=== PATIENT | female | born 1990 | race Caucasian/White ===

== ENCOUNTER 2020-10-02 12:30 | Outpatient (RCR) | payer BC, SELFPAY | END 2020-10-02 23:59 | LOC: IMMUN 12:30 | PROVIDERS: PCP Nurse Practitioner Family; Visit Provider Family Medicine | DX: Z23 Encounter for immunization (principal) | CPT/HCPCS: 0011A; 0012A; 91301 ==

== ENCOUNTER 2022-02-23 16:42 | Emergency (ER) | payer OTHER, BC, SELFPAY ==
[2022-02-23 16:43] VITALS: BP 131/86; PULSE 83; RESP 4; TEMP 36.1; O2SAT 97; BMI 40.6
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
[2022-02-23] MEDS: Amox/Clavulanate 875 MG Tablet PO (17:03)
[2022-02-23] MEDS: Diphth,Pertuss(Acell),Tet Vac 0.5 ML Vial IM (17:03)
== END 2022-02-23 17:10 | disposition home or self-care (01) ==
LOC: ED 17:06
PROVIDERS: Emergency Provider Student in an Organized Health Care Education/Training Program; PCP Nurse Practitioner Family; Visit Provider Student in an Organized Health Care Education/Training Program
DX: S40.272A Other superficial bite of left shoulder, initial encounter (principal); S20.211A Contusion of right front wall of thorax, initial encounter; W50.3XXA Accidental bite by another person, initial encounter; W50.1XXA Accidental kick by another person, initial encounter; Y92.199 Unspecified place in other specified residential institution as the place of occurrence of the external cause; Y99.0 Civilian activity done for income or pay
CPT/HCPCS: 90471; 90715; 99281; 99283

== ENCOUNTER 2023-09-14 08:57 | Emergency (ER) | payer OTHER, BC, SELFPAY ==
[2023-09-14 08:58] VITALS: BP 111/82; PULSE 98; RESP 16; TEMP 36.4; O2SAT 99; BMI 45.6
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
== END 2023-09-14 09:25 | disposition home or self-care (01) ==
LOC: ED 09:20
PROVIDERS: Emergency Provider Emergency Medicine; PCP Family Medicine; Visit Provider Emergency Medicine
DX: S60.571A Other superficial bite of hand of right hand, initial encounter (principal); S60.572A Other superficial bite of hand of left hand, initial encounter; Y04.1XXA Assault by human bite, initial encounter; Y93.89 Activity, other specified; Y99.8 Other external cause status; Y92.89 Other specified places as the place of occurrence of the external cause; Z20.828 Contact with and (suspected) exposure to other viral communicable diseases
CPT/HCPCS: 99282

== ENCOUNTER → 2023-09-30 | Outpatient (CLI) | payer BC, SELFPAY ==
--- OUTSIDE RECORDS SUMMARY | 2023-09-30 10:14 | XMS RPT_ITS | CCD ---
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 Name Role Phone Jama Padilla MD Primary Care Provider BOBBI BILLS Attending JAMA Mckeon Referring Unavailab JAMA Pearson Primary Care Unavailab JAMA Pearson Referring Unavailab JAMA Pearson Primary Care Unavailab JAMA Pearson Attending Unavailab JAMA Pearson Primary Care Unavailab JAMA Pearson Referring Unavailab JAMA Pearson Primary Care Unavailab JAMA Pearson Attending Unavailab JAMA Pearson Referring Unavailab JAMA Pearson Primary Care Unavailab JAMA Pearson Primary Care Unavailab le Allergies Allergy Classification Reported Allergen(s) Allergy Type Date of Onset Reaction(s) Facility (7 sources) Sulfonamides (Antibiotic); Translations: [SULFA (SULFONAMIDE ANTIBIOTICS)] Propensity to adverse reactions 6 [facility] Medications Current Medications Medication Drug Class(es) Dates Sig (Normalized) Sig (Original) levonorgestrel 0.761788 mg/hr intrauterine system (6 sources) Progestin, Progestin-containi ng Intrauterine Device Start: 12-12-2020 End: 12-11-2025 levonorgestrel (KYLEENA) 17.5 mcg/24 hrs (5 yrs) 19.5 mg IUD 1 Each by INTRAUTERINE route as directed. 1 Each 0 12/12/2020 12/11/2025 Active Completed/Discontinued Medications Medication Drug Class(es) Dates Sig (Normalized) Sig (Original) doxycycline monohydrate 100 mg oral capsule (5 sources) Tetracycline-cla ss Drug Start: 11-12-2020 End: 06-16-2023 take 1 capsule by mouth twice daily at mealtime doxycycline monohydrate (MONODOX) 100 mg capsule TAKE 1 CAPSULE BY MOUTH TWICE DAILY for 1 (ONE) month. Take WITH FOOD 0 11/12/2020 06/16/2023 Discontinued Problems Active Problems Problem Classification Problem Date Documented Date Episodic/Chronic Anxiety disorders (3 sources) Generalized anxiety disorder; Translations: [Generalized anxiety disorder] Onset: 11-25-2022 Chronic Disorders usually diagnosed in infancy, childhood, or adolescence (6 sources) Attention deficit hyperactivity disorder, predominantly inattentive type; Translations: [Other specified behavioral and emotional disorders with onset usually occurring in childhood and adolescence] Onset: 06-21-2006 06-21-2006 Chronic Neoplasms of unspecified nature or uncertain behavior (1 source) Thrombocytosis; Translations: [Thrombocytosis] Onset: 06-16-2023 Chronic Neoplasms of unspecified nature or uncertain behavior (2 sources) Thrombocytosis; Translations: [Thrombocytosis] Episodic Other nutritional; endocrine; and metabolic disorders (8 sources) Body mass index 40+ - severely obese; Translations: [Morbid (severe) obesity due to excess calories] Onset: 11-25-2022 Chronic Other nutritional; endocrine; and metabolic disorders (6 sources) Obese class II; Translations: [Obesity, unspecified] Onset: 09-25-2020 09-25-2020 Chronic Other nutritional; endocrine; and metabolic disorders (1 source) Morbid (severe) obesity due to excess calories; Translations: [Morbid obesity with BMI of 40.0-44.9, adult (HCC)] Onset: 11-25-2022 Chronic Other nutritional; endocrine; and metabolic disorders (1 source) Body mass index (BMI) 40.0-44.9, adult; Translations: [Morbid obesity with BMI of 40.0-44.9, adult (HCC)] Onset: 11-25-2022 Chronic Other screening for suspected conditions (not mental disorders or infectious disease) (4 sources) Cancer cervix screening status; Translations: [Encounter for screening for malignant neoplasm of cervix] Onset: 12-23-2022 Episodic Poisoning by nonmedicinal substances (1 source) Bee sting; Translations: [Toxic effect of venom of bees, accidental (unintentional), initial encounter] 08-13-2023 Episodic Skin and subcutaneous tissue infections (1 source) Inflammatory dermatosis; Translations: [Local infection of the skin and subcutaneous tissue, unspecified] 04-24-2023 Episodic Past or Other Problems Problem Classification Problem Date Documented Da te Episodic/Chronic Cancer of cervix (9 sources) Carcinoma in situ of exocervix; Translations: [Carcinoma in situ of exocervix] Onset: 03-05-2020 Episodic Immunizations and screening for infectious disease (6 sources) Viral screening status; Translations: [Encounter for screening for other viral diseases] Onset: 11-25-2022 Episodic Nonmalignant breast conditions (4 sources) Large breast; Translations: [Hypertrophy of breast] Onset: 11-25-2022 Episodic Other skin disorders (8 sources) Axillary hidradenitis suppurativa; Translations: [Hidradenitis suppurativa] Onset: 09-25-2020 Episodic Other skin disorders (1 source) Hidradenitis suppurativa; Translations: [Hidradenitis axillaris] Onset: 09-25-2020 Episodic Results Test Name Value Interpretation Reference Range Facil ity Vital Signs Date Time Vital Sign Value Performing Clinician Faci lity 06-16-2023 08:58-0400 Body weight 104.42 kg Jama Padilla MD Work Phone: [facility] 06-16-2023 08:58-0400 Diastolic blood pressure 70 mm[Hg] Jama Padilla MD Work Phone: [facility] 06-16-2023 08:58-0400 Heart rate 76 /min Jama Padilla MD Work Phone: [facility] 06-16-2023 08:58-0400 Respiratory rate 16 /min Jama Padilla MD Work Phone: [facility] 06-16-2023 08:58-0400 SaO2% (BldA) [Mass fraction] 99 % Jama Padilla MD Work Phone: [facility] 06-16-2023 08:58-0400 Systolic blood pressure 130 mm[Hg] Jama Padilla MD Work Phone: [facility] 04-24-2023 14:07-0400 Body temperature 98.2 [degF] Taurus Salomón BOATING SAFETY OFFICER.HANDBAG FINISHER Work Phone: [facility] 04-24-2023 14:07-0400 Body weight 105.69 kg Taurus Lorenzana BOATING SAFETY OFFICER.HANDBAG FINISHER Work Phone: [facility] 04-24-2023 14:07-0400 Diastolic blood pressure 81 mm[Hg] Taurus Salomón BOATING SAFETY OFFICER.HANDBAG FINISHER Work Phone: [facility] 04-24-2023 14:07-0400 Heart rate 82 /min Taurus Salomón BOATING SAFETY OFFICER.HANDBAG FINISHER Work Phone: [facility] 04-24-2023 14:07-0400 Respiratory rate 18 /min Taurus King BOATING SAFETY OFFICER.HANDBAG FINISHER Work Phone: [facility] 04-24-2023 14:07-0400 SaO2% (BldA) [Mass fraction] 99 % Taurus Salomón BOATING SAFETY OFFICER.HANDBAG FINISHER Work Phone: [facility] 04-24-2023 14:07-0400 Systolic blood pressure 118 mm[Hg] Taurus Salomón BOATING SAFETY OFFICER.HANDBAG FINISHER Work Phone: [facility] 12-23-2022 14:32-0400 Body height 154.9 cm Bobbi Plotts BOATING SAFETY OFFICER.CNM Work Phone: [facility] 12-23-2022 14:32-0400 Body weight 99.79 kg Bobbi Plotts BOATING SAFETY OFFICER.CNM Work Phone: [facility] 12-23-2022 14:32-0400 Diastolic blood pressure 64 mm[Hg] Bobbi Plotts BOATING SAFETY OFFICER.CNM Work Phone: [facility] 12-23-2022 14:32-0400 Systolic blood pressure 112 mm[Hg] Bobbi Plotts BOATING SAFETY OFFICER.CNM Work Phone: [facility] 11-25-2022 13:20-0400 Body height 158.6 cm Jama Padilla MD Work Phone: [facility] 11-25-2022 13:20-0400 Body weight 102.24 kg Jama Padilla MD Work Phone: [facility] 11-25-2022 13:20-0400 Diastolic blood pressure 78 mm[Hg] Jama Padilla MD Work Phone: [facility] 11-25-2022 13:20-0400 Heart rate 67 /min Jama Padilla MD Work Phone: [facility] 11-25-2022 13:20-0400 Respiratory rate 16 /min Jama Padilla MD Work Phone: [facility] 11-25-2022 13:20-0400 SaO2% (BldA) [Mass fraction] 98 % Jama Padilla MD Work Phone: [facility] 11-25-2022 13:20-0400 Systolic blood pressure 124 mm[Hg] Jama Padilla MD Work Phone: [facility] Encounters Encounter Date Encounter Type Care Provider Facility Start: 06-17-2023 Telephone encounter Skip Padilla MD Work Phone: [facility] Procedures Date Procedure Procedure Detail Performing Clinician Start: 12-23-2022 Iadna chlamydia trachomatis amplified probe tq Bobbi Bills BOATING SAFETY OFFICER.CNM Work Phone: Plan of Treatment Date Care Activity Detail Author Start: 02-24-2032 Urine microalbumin profile [facility] Start: 12-24-2027 HPV TESTING HPV TESTING [facility] Start: 12-24-2027 PAP TESTING PAP TESTING [facility] Start: 03-05-2025 HPV TESTING HPV TESTING [facility] Start: 03-05-2025 PAP TESTING PAP TESTING [facility] Start: 03-11-2024 Influenza vaccination Influenza Vacc ine (#1) [facility] Immunizations Immunization Date Immunization Notes Care Provider Fa cility 02-23-2022 tetanus toxoid, redu panchito diphtheria toxoid, and acellular pertussis vaccine, adsorbed Jama Padilla MD Work Phone: [facility] Work Phone: 07-11-2020 influenza, injectabl e, quadrivalent, contains preservative Jama Padilla MD Work Phone: [facility] Work Phone: 07-11-2020 influenza virus vaccine, unspecified formulation Jama Padilla MD Work Phone: [facility] 02-13-2020 tetanus toxoid, redu panchito diphtheria toxoid, and acellular pertussis vaccine, adsorbed Jama Padilla MD Work Phone: [facility] Work Phone: 08-12-2015 influenza, seasonal, injectable Jama Padilla MD Work Phone: [facility] 11-30-2012 Meningococcal, MCV4, unspecified conjugate formulation(groups A, C, Y and W-135) Jama Padilla MD Work Phone: [facility] 04-10-2009 measles, mumps and rubella virus vaccine Jama Padilla MD Work Phone: [facility] Work Phone: 04-16-2008 diphtheria, tetanus toxoids and acellular pertussis vaccine, unspecified formulation Jama Padilla MD Work Phone: [facility] Work Phone: 04-16-2008 meningococcal polysaccharide vaccine (MPSV4) Jama Padilla MD Work Phone: [facility] 04-16-2008 tetanus toxoid, redu panchito diphtheria toxoid, and acellular pertussis vaccine, adsorbed Jama Padilla MD Work Phone: [facility] 09-11-2007 human papilloma viru s vaccine, quadrivalent Jama Padilla MD Work Phone: [facility] 05-09-2007 human papilloma viru s vaccine, quadrivalent Jama Padilla MD Work Phone: [facility] Work Phone: 03-14-2007 human papilloma viru s vaccine, quadrivalent Jama Padilla MD Work Phone: [facility] Work Phone: 10-29-1997 diphtheria, tetanus toxoids and acellular pertussis vaccine Jama Padilla MD Work Phone: [facility] 10-29-1997 measles, mumps and rubella virus vaccine Jama Padilla MD Work Phone: [facility] 10-29-1997 poliovirus vaccine, inactivated Jama Padilla MD Work Phone: [facility] Work Phone: 04-01-1994 diphtheria, tetanus toxoids and acellular pertussis vaccine Jama Padilla MD Work Phone: [facility] 04-01-1994 haemophilus influenz ae type b vaccine, HbOC conjugate Jama Padilla MD Work Phone: [facility] 04-01-1994 measles, mumps and rubella virus vaccine Jama Padilla MD Work Phone: [facility] 04-01-1994 poliovirus vaccine, inactivated Jama Padilla MD Work Phone: [facility] 07-02-1993 diphtheria, tetanus toxoids and acellular pertussis vaccine Jama Padilla MD Work Phone: [facility] 07-02-1993 haemophilus influenz ae type b vaccine, HbOC conjugate Jama Padilla MD Work Phone: [facility] 07-02-1993 hepatitis B vaccine, pediatric or pediatric/adolescent dosage Jama Padilla MD Work Phone: [facility] 04-16-1993 diphtheria, tetanus toxoids and acellular pertussis vaccine Jama Padilla MD Work Phone: [facility] 04-16-1993 haemophilus influenz ae type b vaccine, HbOC conjugate Jama Padilla MD Work Phone: [facility] 04-16-1993 poliovirus vaccine, inactivated Jama Padilla MD Work Phone: [facility] 02-12-1993 diphtheria, tetanus toxoids and acellular pertussis vaccine Jama Padilla MD Work Phone: [facility] 02-12-1993 haemophilus influenz ae type b vaccine, HbOC conjugate Jama Padilla MD Work Phone: [facility] 02-12-1993 poliovirus vaccine, inactivated Jama Padilla MD Work Phone: [facility] 02-03-1993 hepatitis B vaccine, pediatric or pediatric/adolescent dosage Jama Padilla MD Work Phone: [facility] 1992 hepatitis B vaccine, pediatric or pediatric/adolescent dosage Jama Padilla MD Work Phone: [facility] Payers Date Payer Category Payer Unknown [employer] PPO [id number] 2020-Present [phone] [id number] [place] [address] PPO [id number] 2020 Unknown [id number] Social History Date Type Detail Facility Start: 11-25-2022 Tobacco smoking stat [facility] Never smoked tobacco [facility] Start: 11-25-2022 Tobacco use and exposure Smokeless tobacco non-user [facility] Start: 11-25-2022 End: 06-16-2023 Alcohol intake Ex-drinker (finding) [facility] Start: 11-25-2022 End: 06-16-2023 Alcohol intake [facility] Work Phone: Start: 1990 Sex Assigned At Female C [facility] Work Phone: Start: 04-24-2023 End: 06-16-2023 Tobacco use panel [facility] Work Phone: Adult Depression Screening Assessment 0 [facility] Work Phone: Start: 09-25-2020 Gender identity Identifies as female gender (finding) [facility] Work Phone: Start: 09-25-2020 Sexual orientation Heterosexual (fin ding) [facility] Work Phone: Clinical Notes 03-30-2010 to 06-17-2023 Telephone Encounter - Heidi Clarke RN - 06/17/2023 8:45 AM EDTBJama woo MD - 06/16/2023 8:55 AM EDTTaurus Lorenzana APRN.HANDBAG FINISHER - 04/24/2023 2:28 PM EDT Note Date & Type Note Facility 06-17-2023 Miscellaneous Notes Images from the original note were not included. Detailed message left on pt's identified VM, of message below. Heidi Clarke RN Result Notes Jama Padilla MD 06/17/2023 8:05 AM EDT Labs unremarkable. No changes to regimen. documented in this encounter [facility] 06-16-2023 Note HNO ID: [id number] Author: Jama Padilla MD Service: ? Author Type: Physician Type: Progress Notes Filed: 06/16/2023 9:37 AM Note Text: Chief Complaint Patient presents with: Follow Up: 6 month HPI Bobbi Lipscomb is a 32 year old female who presents here today for Above Complaints.. Zoloft increased from 50 to 75 mg at last OV for uncontrolled anxiety symptoms. Working well on higher dosage. Not seeing counseling and is refusing referral today. Denies panic symptoms, SI/HI. Patient following up with dermatology about every 6-12 months for her hidradenitis. Stopped her doxycycline and aldactone 3 months ago due to diarrhea and increased appetite. Has not seen dermatology recently or notified them that she stopped the rx. Pap smear, HPV, and GC/chlamydia screening on 12/23 all normal. Going to the gym 4 days per week to help with weight loss. Thinks she has lost weight and gained some muscle. Clothes fitting looser and friends have commented about weight loss. Not eating the best . Past medical history, appointments, medications, allergies reviewed. Previous Medical History PAST MEDICAL HISTORY Diagnosis Date Abnormal glandular Papanicolaou smear of cervix 11/2017 Abn. 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 Mcmanus Macromastia Morbid obesity with BMI of 40.0-44.9, adult (HCC) Previous Surgical History PAST SURGICAL HISTORY Procedure Laterality Date COLPOSCOPY CERVIX UPPER/ADJACENT VAGINA 2017 Colposcopy CONIZATION CERVIX W/WO DANDC RPR ELTRD EXC 2018 LEEP-Cervix KYLEENA IUD 12/12/2020 placed in office- due to come out 2025 Family History FAMILY HISTORY Problem Relation Age of Onset No Known Problems Mother Hypertension Father Anxiety disorder Sister No Known Problems Brother Clotting Disorder Maternal Grandmother blood clots Colon Cancer Maternal Aunt Colon Cancer Maternal Uncle Breast Cancer Paternal Aunt Patient Allergies ALLERGIES Allergen Reactions Sulfa (Sulfonamide * Current Medications Current Outpatient Medications on File Prior to Visit Medication Sig sertraline (ZOLOFT) 50 mg tablet Take 1.5 tablets by mouth once daily. spironolactone (ALDACTONE) 100 mg tablet Take one pill by mouth once a day with a full glass of water. levonorgestrel (KYLEENA) 17.5 mcg/24 hrs (5 yrs) 19.5 mg IUD 1 Each by INTRAUTERINE route as directed. doxycycline monohydrate (MONODOX) 100 mg capsule TAKE 1 CAPSULE BY MOUTH TWICE DAILY for 1 (ONE) month. Take WITH FOOD (Patient not taking: Reported on 04/24/2023) No current facility-administered medications on file prior to visit. Social History Social History Tobacco Use Smoking status: Never Smokeless tobacco: Never Vaping Use Vaping Use: Never used Substance Use Topics Alcohol use: Not Currently Alcohol/week: 3.0 standard drinks of alcohol Types: 3 Standard drinks or equivalent per week Drug use: No Review of Symptoms REVIEW OF SYSTEMS GENERAL: No weight loss, malaise or fevers RESPIRATORY: Negative for cough, hemoptysis, wheezing, COPD, dyspnea or shortness of breath CARDIOVASCULAR: Negative for chest pain, leg swelling, hypertension, CHF or palpitations GI: No nausea, vomiting, or diarrhea SKIN: Negative for lesions, rash, and itching EXAM: BP 130/70 Pulse 76 Resp 16 Wt 104.4 kg (230 lb 3.2 oz) LMP 12/29/2020 SpO2 99% BMI 43.50 kg/m? General Appearance: Well appearing, alert, in no acute distress, well-hydrated, well nourished. Morbidly obese. Skin: Skin color, texture, turgor normal, no suspicious rashes or lesions. Lungs: Lungs clear to auscultation. No wheezing, rhonchi, rales.. Heart: RRR without murmur, gallop, or rubs. No ectopy. Abdomen: Normal abdominal exam, Abdomen soft, non-tender. Bowel sounds normal. No masses, organomegaly. Extremities: No deformities, edema, skin discoloration, clubbing or cyanosis. Good capillary refill. . Health Maintenance List Influenza Vaccine(1) due on 05/13/2023 Covid-19 Vaccine(3 - Moderna series) due on 11/26/2023 Pap Testing due on 12/24/2027 HPV Testing due on 12/24/2027 DTaP,Tdap,Td Vaccine(10 - Td or Tdap) due on 02/24/2032 Hepatitis B Vaccine Completed HPV Vaccine Completed Depression Assessment Completed Hepatitis C Screening Completed HIV Screening Completed Data reviewed Component Latest Ref Rng AND Units 11/25/2022 WBC 3.70 - 11.00 k/uL 10.18 RBC 3.90 - 5.20 m/uL 4.81 Hemoglobin 11.5 - 15.5 g/dL 14.4 Hematocrit 36.0 - 46.0 % 42.8 MCV 80.0 - 100.0 fL 89.0 MCH 26.0 - 34.0 pg 29.9 MCHC 30.5 - 36.0 g/dL 33.6 RDW-CV 11.5 - 15.0 % 12.2 Platelet (more content not included)... [facility] 06-16-2023 History of Presen t illness Narrative Chief Complaint Patient presents with: Follow Up: 6 month HPI Bobbi Lipscomb is a 32 year old female who presents here today for Above Complaints.. Zoloft increased from 50 to 75 mg at last OV for uncontrolled anxiety symptoms. Working well on higher dosage. Not seeing counseling and is refusing referral today. Denies panic symptoms, SI/HI. Patient following up with dermatology about every 6-12 months for her hidradenitis. Stopped her doxycycline and aldactone 3 months ago due to diarrhea and increased appetite. Has not seen dermatology recently or notified them that she stopped the rx. Pap smear, HPV, and GC/chlamydia screening on 12/23 all normal. Going to the gym 4 days per week to help with weight loss. Thinks she has lost weight and gained some muscle. Clothes fitting looser and friends have commented about weight loss. Not eating the best . Past medical history, appointments, medications, allergies reviewed. Previous Medical History PAST MEDICAL HISTORY Diagnosis Date Abnormal glandular Papanicolaou smear of cervix 11/2017 Abn. 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 Mcmanus Macromastia Morbid obesity with BMI of 40.0-44.9, adult (HCC) Previous Surgical History PAST SURGICAL HISTORY Procedure Laterality Date COLPOSCOPY CERVIX UPPER/ADJACENT VAGINA 2017 Colposcopy CONIZATION CERVIX W/WO D&C RPR ELTRD EXC 2017 LEEP-Cervix KYLEENA IUD 12/12/2020 placed in office- due to come out 2025 Family History FAMILY HISTORY Problem Relation Age of Onset No Known Problems Mother Hypertension Father Anxiety disorder Sister No Known Problems Brother Clotting Disorder Maternal Grandmother blood clots Colon Cancer Maternal Aunt Colon Cancer Maternal Uncle Breast Cancer Paternal Aunt Patient Allergies ALLERGIES Allergen Reactions Sulfa (Sulfonamide * Current Medications Current Outpatient Medications on File Prior to Visit Medication Sig sertraline (ZOLOFT) 50 mg tablet Take 1.5 tablets by mouth once daily. spironolactone (ALDACTONE) 100 mg tablet Take one pill by mouth once a day with a full glass of water. levonorgestrel (KYLEENA) 17.5 mcg/24 hrs (5 yrs) 19.5 mg IUD 1 Each by INTRAUTERINE route as directed. doxycycline monohydrate (MONODOX) 100 mg capsule TAKE 1 CAPSULE BY MOUTH TWICE DAILY for 1 (ONE) month. Take WITH FOOD (Patient not taking: Reported on 04/24/2023) No current facility-administered medications on file prior to visit. Social History Social History Tobacco Use Smoking status: Never Smokeless tobacco: Never Vaping Use Vaping Use: Never used Substance Use Topics Alcohol use: Not Currently Alcohol/week: 3.0 standard drinks of alcohol Types: 3 Standard drinks or equivalent per week Drug use: No Review of Symptoms REVIEW OF SYSTEMS GENERAL: No weight loss, malaise or fevers RESPIRATORY: Negative for cough, hemoptysis, wheezing, COPD, dyspnea or shortness of breath CARDIOVASCULAR: Negative for chest pain, leg swelling, hypertension, CHF or palpitations GI: No nausea, vomiting, or diarrhea SKIN: Negative for lesions, rash, and itching EXAM: BP 130/70 Pulse 76 Resp 16 Wt 104.4 kg (230 lb 3.2 oz) LMP 12/29/2020 SpO2 99% BMI 43.50 kg/m General Appearance: Well appearing, alert, in no acute distress, well-hydrated, well nourished. Morbidly obese. Skin: Skin color, texture, turgor normal, no suspicious rashes or lesions. Lungs: Lungs clear to auscultation. No wheezing, rhonchi, rales.. Heart: RRR without murmur, gallop, or rubs. No ectopy. Abdomen: Normal abdominal exam, Abdomen soft, non-tender. Bowel sounds normal. No masses, organomegaly. Extremities: No deformities, edema, skin discoloration, clubbing or cyanosis. Good capillary refill. . Health Maintenance List Influenza Vaccine(1) due on 05/13/2023 Covid-19 Vaccine(3 - Moderna series) due on 11/26/2023 Pap Testing due on 12/24/2027 HPV Testing due on 12/24/2027 DTaP,Tdap,Td Vaccine(10 - Td or Tdap) due on 02/24/2032 Hepatitis B Vaccine Completed HPV Vaccine Completed Depression Assessment Completed Hepatitis C Screening Completed HIV Screening Completed Data reviewed Component Latest Ref Rng & Units 11/25/2022 WBC 3.70 - 11.00 k/uL 10.18 RBC 3.90 - 5.20 m/uL 4.81 Hemoglobin 11.5 - 15.5 g/dL 14.4 Hematocrit 36.0 - 46.0 % 42.8 MCV 80.0 - 100.0 fL 89.0 MCH 26.0 - 34.0 pg 29.9 MCHC 30.5 - 36.0 g/dL 33.6 RDW-CV 11.5 - 15.0 % 12.2 Platelet Count 150 - 400 k/uL 433 (H) MPV 9.0 - 12.7 fL 9.5 Neut% % 55.2 Abs Neut (ANC) 1.45 - 7.50 k/uL 5.63 Lymph% % 35.9 Abs Lymph 1.00 - 4.00 k/uL 3.65 Hardee% % 7.0 Abs Hardee <0.87 k/uL 0.71 Eosin% % 1.0 Abs Eosin <0.46 k/uL 0.10 Baso% % 0.7 Abs Baso <0.11 k/uL 0.07 Immature Gran % % 0.2 IMMATURE GRANS (ABS) <0.10 k/uL <0.03 NRBC /100 WBC 0.0 Absolute nRBC <0.01 k/uL <0.01 DTYPE Auto Protein, Total 6.3 - 8.0 g/dL 7.7 Albumin 3.9 - 4.9 g/dL 4.5 Calcium 8.5 - 10.2 mg/dL 9.8 Bilirubin, Total 0.2 - 1.3 mg/dL 0.5 Alkaline Phosphatase 34 - 123 U/L 64 AST 13 - 35 U/L 35 ALT 7 - 38 U/L 39 (H) Glucose 74 - 99 mg/dL 87 BUN 7 - 21 mg/dL 12 Creatinine 0.58 - 0.96 mg/dL 0.84 Sodium 136 - 144 mmol/L 138 Potassium 3.7 - 5.1 mmol/L 4.2 Chloride 97 - 105 mmol/L 103 CO2 22 - 30 mmol/L 26 Anion Gap 9 - 18 mmol/L 9 eGFR >=60 mL/min/1.73m 97 Total Cholesterol, Nonfasting <200 mg/dL 179 Triglycerides, Nonfasting <150 mg/dL 156 (H) HDL Cholesterol, Nonfasting >39 mg/dL 33 (L) LDL Cholesterol, Nonfasting <100 mg/dL 115 (H) Non HDL Cholesterol, Nonfasting <130 mg/dL 146 (H) VLDL Cholesterol, Nonfasting <30 mg/dL 31 (H) Total Chol/HDL Ratio, Nonfasting <5.10 mg/dL 5.42 (H) LDL/HDL Ratio, Nonfasting <2.54 mg/dL 3.48 (H) Hemoglobin A1C 4.3 - 5.6 % 5.4 Estimated Average Glucose mg/dL 108 Hep C Antibody IA Negative Negative ASSESSMENT/PLAN: 1. KATLYN (generalized anxiety disorder) - ICD9: 300.02, ICD10: F41.1 (primary diagnosis) Improved on higher dose Zoloft. Continue current regimen. 2. Morbid obesity with BMI of 40.0-44.9, adult (HCC) - ICD9: 278.01, V85.41, ICD10: E66.01, Z68.41 Weight decreasing - Behavioral intervention 3. Hidradenitis axillaris - ICD9: 705.83, ICD10: L73.2 No new lesions. Stopped her meds due to side effect. Recommended she call dermatology for f/u and alternative rx. 4. Thrombocytosis - ICD9: 238.71, ICD10: D75.839 Recheck labs. - CBC + DIFF 5. Elevated LFTs - ICD9: 790.6, ICD10: R79.89 Recheck labs. - COMP METABOLIC PANEL Jama Padilla MD documented in this encounter [facility] 04-24-2023 Note HNO ID: [id number] Author: Taurus Lorenzana APRN.HANDBAG FINISHER Service: ? Author Type: Nurse Practitioner Type: Progress Notes Filed: 04/24/2023 2:33 PM Note Text: Subjective HPI HPI Bobbi Lipscomb is a 32 year old female who presents today for CC of left thigh bee sting. This started 2 days ago, still red. Has tried otc mediation for relief. Symptoms are worsened by nothing. Risk factors no hx of bad reactions to bee stings in past. Denies trouble breathing/swallowing. .Patient presents with: Insect Bite: L thigh bee sting x2 days PAST MEDICAL HISTORY Diagnosis Date Abnormal glandular Papanicolaou smear of cervix 11/2017 Abn. 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- PAP completed today 2017- LEEP procedure for HSIL Returned JENNYFER 3 present but not in margins, patient to repeat in 2019 but did not have health insurance Generalized anxiety disorder Hidradenitis axillaris [facility] Zenaida Mcmanus Macromastia Morbid obesity with BMI of 40.0-44.9, adult (HCC) PAST SURGICAL HISTORY Procedure Laterality Date COLPOSCOPY CERVIX UPPER/ADJACENT VAGINA 2017 Colposcopy CONIZATION CERVIX W/WO DANDC RPR ELTRD EXC 2018 LEEP-Cervix KYLEENA IUD 12/12/2020 placed in office- due to come out 2025 ALLERGIES Sulfa (Sulfonamide Antibiotics) MEDICATIONS sertraline (ZOLOFT) 50 mg tablet Take 1.5 tablets by mouth once daily. spironolactone (ALDACTONE) 100 mg tablet Take one pill by mouth once a day with a full glass of water. levonorgestrel (KYLEENA) 17.5 mcg/24 hrs (5 yrs) 19.5 mg IUD 1 Each by INTRAUTERINE route as directed. predniSONE (DELTASONE) 20 mg tablet Take 2 tablets by mouth once daily for 5 days. doxycycline monohydrate (MONODOX) 100 mg capsule TAKE 1 CAPSULE BY MOUTH TWICE DAILY for 1 (ONE) month. Take WITH FOOD (Patient not taking: Reported on 04/24/2023) FAMILY HISTORY Problem Relation Age of Onset No Known Problems Mother Hypertension Father Anxiety disorder Sister No Known Problems Brother Clotting Disorder Maternal Grandmother blood clots Colon Cancer Maternal Aunt Colon Cancer Maternal Uncle Breast Cancer Paternal Aunt Social History Tobacco Use Smoking status: Never Smokeless tobacco: Never Vaping Use Vaping Use: Never used Substance Use Topics Alcohol use: Not Currently Alcohol/week: 3.0 standard drinks of alcohol Types: 3 Standard drinks or equivalent per week Drug use: No ROS Objective Blood pressure 118/81, pulse 82, temperature 36.8 ?C (98.2 ?F), resp. rate 18, weight 105.7 kg (233 lb), last menstrual period 12/29/2020, SpO2 99 %. Physical Exam Constitutional: General: She is not in acute distress. Appearance: She is not toxic-appearing or diaphoretic. HENT: Head: Normocephalic and atraumatic. Cardiovascular: Rate and Rhythm: Normal rate and regular rhythm. Heart sounds: Normal heart sounds, S1 normal and S2 normal. Pulmonary: Effort: Pulmonary effort is normal. Breath sounds: Normal breath sounds. Skin: Neurological: Mental Status: She is alert and oriented to person, place, and time. Gait: Gait is intact. ASSESSMENT/PLAN: 1. Bee sting, accidental or unintentional, initial encounter - ICD9: 989.5, E905.3, ICD10: T63.441A (primary diagnosis) -use medication as prescribed -follow up if symptoms persist, worsen, change - PREDNISONE 20 MG TABLET 2. Skin inflammation - ICD9: 686.9, ICD10: L08.9 Try steroid F/u for continued/worsening s/s. - PREDNISONE 20 MG TABLET Taurus Lorenzana APRN.[facility] 04-24-2023 History of Presen t illness Narrative Images from the original note were not included. Subjective HPI HPI Bobbi Lipscomb is a 32 year old female who presents today for CC of left thigh bee sting. This started 2 days ago, still red. Has tried otc mediation for relief. Symptoms are worsened by nothing. Risk factors no hx of bad reactions to bee stings in past. Denies trouble breathing/swallowing. .Patient presents with: Insect Bite: L thigh bee sting x2 days PAST MEDICAL HISTORY Diagnosis Date Abnormal glandular Papanicolaou smear of cervix 11/2017 Abn. 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 Mcmanus Macromastia Morbid obesity with BMI of 40.0-44.9, adult (HCC) PAST SURGICAL HISTORY Procedure Laterality Date COLPOSCOPY CERVIX UPPER/ADJACENT VAGINA 2017 Colposcopy CONIZATION CERVIX W/WO D&C RPR ELTRD EXC 2018 LEEP-Cervix KYLEENA IUD 12/12/2020 placed in office- due to come out 2025 ALLERGIES Sulfa (Sulfonamide Antibiotics) MEDICATIONS sertraline (ZOLOFT) 50 mg tablet Take 1.5 tablets by mouth once daily. spironolactone (ALDACTONE) 100 mg tablet Take one pill by mouth once a day with a full glass of water. levonorgestrel (KYLEENA) 17.5 mcg/24 hrs (5 yrs) 19.5 mg IUD 1 Each by INTRAUTERINE route as directed. predniSONE (DELTASONE) 20 mg tablet Take 2 tablets by mouth once daily for 5 days. doxycycline monohydrate (MONODOX) 100 mg capsule TAKE 1 CAPSULE BY MOUTH TWICE DAILY for 1 (ONE) month. Take WITH FOOD (Patient not taking: Reported on 04/24/2023) FAMILY HISTORY Problem Relation Age of Onset No Known Problems Mother Hypertension Father Anxiety disorder Sister No Known Problems Brother Clotting Disorder Maternal Grandmother blood clots Colon Cancer Maternal Aunt Colon Cancer Maternal Uncle Breast Cancer Paternal Aunt Social History Tobacco Use Smoking status: Never Smokeless tobacco: Never Vaping Use Vaping Use: Never used Substance Use Topics Alcohol use: Not Currently Alcohol/week: 3.0 standard drinks of alcohol Types: 3 Standard drinks or equivalent per week Drug use: No ROS Objective Blood pressure 118/81, pulse 82, temperature 36.8 C (98.2 F), resp. rate 18, weight 105.7 kg (233 lb), last menstrual period 12/29/2020, SpO2 99 %. Physical Exam Constitutional: General: She is not in acute distress. Appearance: She is not toxic-appearing or diaphoretic. HENT: Head: Normocephalic and atraumatic. Cardiovascular: Rate and Rhythm: Normal rate and regular rhythm. Heart sounds: Normal heart sounds, S1 normal and S2 normal. Pulmonary: Effort: Pulmonary effort is normal. Breath sounds: Normal breath sounds. Skin: Neurological: Mental Status: She is alert and oriented to person, place, and time. Gait: Gait is intact. ASSESSMENT/PLAN: 1. Bee sting, accidental or unintentional, initial encounter - ICD9: 989.5, E905.3, ICD10: T63.441A (primary diagnosis) -use medication as prescribed -follow up if symptoms persist, worsen, change - PREDNISONE 20 MG TABLET 2. Skin inflammation - ICD9: 686.9, ICD10: L08.9 Try steroid F/u for continued/worsening s/s. - PREDNISONE 20 MG TABLET Taurus Lorenzana APRN.KATHY documented in this encounter [facility] 12-23-2022 Note HNO ID: [id number] Author: Bobbi Bills APRN.CNM Service: ? Author Type: Double End Tenoner Setter Type: Progress Notes Filed: 12/23/2022 3:24 PM Note Text: Retort Feeder Ground Bone offered: Patient declines. Martines is a 32 year old who presents for an annual gynecologic exam without complaints. Interested in breast reduction- Menses: occasional spotting- Kyleena. Contraception: IUD HPV vaccine: Yes Last Pap: 03/07/2020 normal HPV: 03/11/2020 negative History of abnormal pap: Yes- HSIL/ CIN3 2017 Last mammogram: never Sexually active: Yes Pain with intercourse: No Postcoital bleeding: No Hot flashes: No Night sweats: No Vaginal dryness: No Seatbelt use: Yes OB History T0 L0 SAB0 IAB0 Ectopic0 Multiple0 Live Births0 Comprehensive Advisor History LMP: 12/29/2020, IUD Age at Menarche: Age at First : Age at Menopause: Comprehensive Advisor History Comments: Sexual Activity: Yes; Male Contraception: I.U.D. PAST MEDICAL HISTORY Diagnosis Date Abnormal glandular Papanicolaou smear of cervix 11/2017 Abn. 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 Mcmanus Macromastia Morbid obesity with BMI of 40.0-44.9, adult (HCC) PAST SURGICAL HISTORY Procedure Laterality Date COLPOSCOPY CERVIX UPPER/ADJACENT VAGINA 2018 Colposcopy CONIZATION CERVIX W/WO DANDC RPR ELTRD EXC 2018 LEEP-Cervix KYLEENA IUD 12/12/2020 placed in office- due to come out 2025 FAMILY HISTORY Problem Relation Age of Onset No Known Problems Mother Hypertension Father Anxiety disorder Sister No Known Problems Brother Clotting Disorder Maternal Grandmother blood clots Colon Cancer Maternal Aunt Colon Cancer Maternal Uncle Breast Cancer Paternal Aunt SOCIAL HISTORY Social History Tobacco Use Smoking status: Never Smokeless tobacco: Never Vaping Use Vaping Use: Never used Substance Use Topics Alcohol use: Not Currently Alcohol/week: 3.0 standard drinks Types: 3 Standard drinks or equivalent per week Drug use: No REVIEW OF SYSTEMS Abdomen: No abdominal pain, nausea, vomiting, diarrhea, or constipation. No bloating, early satiety, indigestion, or increased flatulence. Bladder: No dysuria, gross hematuria, urinary frequency, urinary urgency, or incontinence. Breast: No breast lumps, nipple d/c, overlying skin changes, redness or skin retraction. Allergies and current medication updated:Yes EXAM: BP 112/64 Ht 5' 1 (1.55m) Wt 220 lb (99.8kg) LMP 12/29/2020 BMI 41.59 kg/(m2). GENERAL: pleasant, female in no apparent distress HEENT: Normocephalic, atraumatic, mucus membranes moist, and no lesions NECK: Supple and full range of motion DERMATOLOGY: Normal and without lesions BREAST: soft, non-tender, symmetric, no dominant mass, normal nipple-areolar complex, no lymphadenopathy, and no nipple discharge CHEST: Normal inspiratory effort ABDOMEN: soft, non-tender, and no masses PELVIC: external genitalia normal, normal Bartholin's glands, urethra, [place]'s glands, no vulvar lesions, no cervical lesions, good vaginal support, physiologic discharge present, normal appearing perineal body and perianal region. IUD strings visible. BIMANUAL: uterus normal size, shape and consistency, no adnexal masses, non-tender, and no cervical motion tenderness RECTOVAGINAL: deferred. NEURO: alert and oriented x3,exam grossly non-focal EXTREMITIES: normal ASSESSMENT/PLAN: 1) Health maintenance: Pap done with HPV. Nutrition, exercise and routine health maintenance exams reviewed. Calcium/Vitamin D supplementation information provided. 2) Contraception: IUD. Contraceptive options reviewed and information provided. 3) STD screening: Accepted STD check for Gonorrhea and Chlamydia. 4) Consult to plastic surgery due to desire for breast reduction RTO 1 year or sooner if needed Bobbi RICHARD Bills.OLAYINKA [facility] 12-23-2022 History of Presen t illness Narrative Retort Feeder Ground Bone offered: Patient declines. Bobbi is a 32 year old who presents for an annual gynecologic exam without complaints. Interested in breast reduction- Menses: occasional spotting- Kyleena. Contraception: IUD HPV vaccine: Yes Last Pap: 03/07/2020 normal HPV: 03/11/2020 negative History of abnormal pap: Yes- HSIL/ CIN3 2017 Last mammogram: never Sexually active: Yes Pain with intercourse: No Postcoital bleeding: No Hot flashes: No Night sweats: No Vaginal dryness: No Seatbelt use: Yes OB History T0 L0 SAB0 IAB0 Ectopic0 Multiple0 Live Births0 Comprehensive Advisor History LMP: 12/29/2020, IUD Age at Menarche: Age at First : Age at Menopause: Comprehensive Advisor History Comments: Sexual Activity: Yes; Male Contraception: I.U.D. PAST MEDICAL HISTORY Diagnosis Date Abnormal glandular Papanicolaou smear of cervix 11/2017 Abn. 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 Mcmanus Macromastia Morbid obesity with BMI of 40.0-44.9, adult (HCC) PAST SURGICAL HISTORY Procedure Laterality Date COLPOSCOPY CERVIX UPPER/ADJACENT VAGINA 2017 Colposcopy CONIZATION CERVIX W/WO D&C RPR ELTRD EXC 2018 LEEP-Cervix KYLEENA IUD 12/12/2020 placed in office- due to come out 2025 FAMILY HISTORY Problem Relation Age of Onset No Known Problems Mother Hypertension Father Anxiety disorder Sister No Known Problems Brother Clotting Disorder Maternal Grandmother blood clots Colon Cancer Maternal Aunt Colon Cancer Maternal Uncle Breast Cancer Paternal Aunt SOCIAL HISTORY Social History Tobacco Use Smoking status: Never Smokeless tobacco: Never Vaping Use Vaping Use: Never used Substance Use Topics Alcohol use: Not Currently Alcohol/week: 3.0 standard drinks Types: 3 Standard drinks or equivalent per week Drug use: No REVIEW OF SYSTEMS Abdomen: No abdominal pain, nausea, vomiting, diarrhea, or constipation. No bloating, early satiety, indigestion, or increased flatulence. Bladder: No dysuria, gross hematuria, urinary frequency, urinary urgency, or incontinence. Breast: No breast lumps, nipple d/c, overlying skin changes, redness or skin retraction. Allergies and current medication updated:Yes EXAM: BP 112/64 Ht 5' 1 (1.55m) Wt 220 lb (99.8kg) LMP 12/29/2020 BMI 41.59 kg/(m^2). GENERAL: pleasant, female in no apparent distress HEENT: Normocephalic, atraumatic, mucus membranes moist, and no lesions NECK: Supple and full range of motion DERMATOLOGY: Normal and without lesions BREAST: soft, non-tender, symmetric, no dominant mass, normal nipple-areolar complex, no lymphadenopathy, and no nipple discharge CHEST: Normal inspiratory effort ABDOMEN: soft, non-tender, and no masses PELVIC: external genitalia normal, normal Bartholin's glands, urethra, [place]'s glands, no vulvar lesions, no cervical lesions, good vaginal support, physiologic discharge present, normal appearing perineal body and perianal region. IUD strings visible. BIMANUAL: uterus normal size, shape and consistency, no adnexal masses, non-tender, and no cervical motion tenderness RECTOVAGINAL: deferred. NEURO: alert and oriented x3,exam grossly non-focal EXTREMITIES: normal ASSESSMENT/PLAN: 1) Health maintenance: Pap done with HPV. Nutrition, exercise and routine health maintenance exams reviewed. Calcium/Vitamin D supplementation information provided. 2) Contraception: IUD. Contraceptive options reviewed and information provided. 3) STD screening: Accepted STD check for Gonorrhea and Chlamydia. 4) Consult to plastic surgery due to desire for breast reduction RTO 1 year or sooner if needed Bobbi Bills APRN.CNM documented in this encounter [facility] 11-29-2022 Miscellaneous Notes Patient telephoned and made aware of providers recommendations and results below. Voices understanding. Jeannine Mckee LPN Please call patient and let her know her labs show mild elevation in platelets- recommend recheck in 3 months. LDL ( bad cholesterol) very mildly elevation- recommend low fast saturated diet and at least 150 minutes of exercise per week. The rest of her blood work is within acceptable ranges. Jil Nuno APRN.CNP documented in this encounter [facility] 11-25-2022 Note HNO ID: [id number] Author: Jama Padilla MD Service: ? Author Type: Physician Type: Progress Notes Filed: 11/25/2022 4:38 PM Note Text: Chief Complaint Patient presents with: [facility] HPI Bobbi Lipscomb is a 31 year old female who presents here today for Transfer of care visit from [facility] and annual physical. Last OV 01/22/2021. Patient states that she was previously treated with Zoloft 75 mg daily for her KATLYN which she ran out of 6 months ago. Had been working well for her at that dosage. Without her medications symptoms have worsened again. Denies recent panic symptoms, SI/HI. 11/25/2022 1332 Last Filed Value KATLYN-7 - over the last 2 weeks... Feeling nervous, anxious, or on edge Several days Several days Not being able to stop or control worrying Nearly Everyday Nearly Everyday Worrying too much about different things Nearly Everyday Nearly Everyday Trouble relaxing More than half the days More than half the days Being so restless that it is hard to sit still Nearly Everyday Nearly Everyday Becoming easily annoyed or irritable More than half the days More than half the days Feeling afraid, as if something awful might happen Several days Several days How difficult to do work, care for home, get along with people Not difficult at all Not difficult at all KATLYN-2 Total Score 4 4 KATLYN-7 Total Score 15 15 KATLYN-7 Score 15 15 PHQ-2 / Depression screen He in the past two weeks denies having felt down, depressed, hopeless or with little interest or pleasure in doing things. Patient following up with dermatology about every 6-12 months for her hidradenitis. Controlled with doxycycline and aldactone. Due for pap smear with [facility]. Last was 02/2020 and was normal. History of Leep and conization for HGSIL and carcinoma in situ. Weight in morbid obesity range. Goes to the gym 4 days per week, but does not eat healthy diet. Past medical history, appointments, medications, allergies reviewed. Previous Medical History PAST MEDICAL HISTORY Diagnosis Date Abnormal glandular Papanicolaou smear of cervix 11/2017 Abn. 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- PAP completed today 2017- LEEP procedure for HSIL Returned JENNYFER 3 present but not in margins, patient to repeat in 2019 but did not have health insurance Generalized anxiety disorder Hidradenitis axillaris Previous Surgical History PAST SURGICAL HISTORY Procedure Laterality Date COLPOSCOPY CERVIX UPPER/ADJACENT VAGINA 2017 Colposcopy CONIZATION CERVIX W/WO DANDC RPR ELTRD EXC 2017 LEEP-Cervix KYLEENA IUD 12/12/2020 placed in office- due to come out 2025 Family History FAMILY HISTORY Problem Relation Age of Onset Hypertension Father Anxiety disorder Sister No Known Problems Brother Clotting Disorder Maternal Grandmother blood clots Colon Cancer Maternal Uncle Colon Cancer Maternal Aunt Breast Cancer Paternal Aunt Patient Allergies ALLERGIES Allergen Reactions Sulfa (Sulfonamide * Current Medications Current Outpatient Medications on File Prior to Visit Medication Sig spironolactone (ALDACTONE) 100 mg tablet Take one pill by mouth once a day with a full glass of water. levonorgestrel (KYLEENA) 17.5 mcg/24 hrs (5 yrs) 19.5 mg IUD 1 Each by INTRAUTERINE route as directed. doxycycline monohydrate (MONODOX) 100 mg capsule TAKE 1 CAPSULE BY MOUTH TWICE DAILY for 1 (ONE) month. Take WITH FOOD sertraline (ZOLOFT) 50 mg tablet Take 1 tablet by mouth once daily. (Patient taking differently: Take 50 mg by mouth once daily. Patient thinks she is on 150mg po daily) No current facility-administered medications on file prior to visit. Social History Social History Tobacco Use Smoking status: Never Smokeless tobacco: Never Vaping Use Vaping Use: Never used Substance Use Topics Alcohol use: Yes Alcohol/week: 1.3 standard drinks Types: 1 Mixed Drinks per week Comment: Socially Drug use: No Review of Symptoms REVIEW OF SYSTEMS GENERAL: No weight loss, malaise or fevers HEENT: Negative for frequent or significant headaches, No changes in hearing or vision, no nose bleeds or other nasal problems NECK: Negative for lumps, goiter, pain and significant neck swelling RESPIRATORY: Negative for cough, hemoptysis, wheezing, COPD, dyspnea or shortness of breath CARDIOVASCULAR: Negative for chest pain, leg swelling, hypertension, CHF or palpitations GI: No nausea, vomiting, or diarrhea : No history of dysuria, frequency or incontinence [facility]: Negative for abnormal vaginal bleeding, abnormal vaginal discharge MUSCULOSKELETAL: Negative for joint pain or swelling, back pain or muscle pain SKIN: Negative for lesions, rash, and itching EXAM: BP 124/78 Pulse 67 Resp 16 Ht 158.6 cm (5' 2.44 ) Wt 102.2 kg (225 lb 6.4 oz) LMP 12/29/2020 SpO2 98% BMI 40.65 k (more content not included)... [facility] 11-25-2022 History of Presen t illness Narrative Chief Complaint Patient presents with: Establish Care HPI Bobbi Lipscomb is a 31 year old female who presents here today for Transfer of care visit from [facility] and annual physical. Last OV 01/22/2021. Patient states that she was previously treated with Zoloft 75 mg daily for her KATLYN which she ran out of 6 months ago. Had been working well for her at that dosage. Without her medications symptoms have worsened again. Denies recent panic symptoms, SI/HI. 11/25/2022 1332 Last Filed Value KATLYN-7 - over the last 2 weeks... Feeling nervous, anxious, or on edge Several days Several days Not being able to stop or control worrying Nearly Everyday Nearly Everyday Worrying too much about different things Nearly Everyday Nearly Everyday Trouble relaxing More than half the days More than half the days Being so restless that it is hard to sit still Nearly Everyday Nearly Everyday Becoming easily annoyed or irritable More than half the days More than half the days Feeling afraid, as if something awful might happen Several days Several days How difficult to do work, care for home, get along with people Not difficult at all Not difficult at all KATLYN-2 Total Score 4 4 KATLYN-7 Total Score 15 15 KATLYN-7 Score 15 15 PHQ-2 / Depression screen He in the past two weeks denies having felt down, depressed, hopeless or with little interest or pleasure in doing things. Patient following up with dermatology about every 6-12 months for her hidradenitis. Controlled with doxycycline and aldactone. Due for pap smear with [facility]. Last was 02/2020 and was normal. History of Leep and conization for HGSIL and carcinoma in situ. Weight in morbid obesity range. Goes to the gym 4 days per week, but does not eat healthy diet. Past medical history, appointments, medications, allergies reviewed. Previous Medical History PAST MEDICAL HISTORY Diagnosis Date Abnormal glandular Papanicolaou smear of cervix 11/2017 Abn. 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- PAP completed today 2017- LEEP procedure for HSIL Returned JENNYFER 3 present but not in margins, patient to repeat in 2019 but did not have health insurance Generalized anxiety disorder Hidradenitis axillaris Previous Surgical History PAST SURGICAL HISTORY Procedure Laterality Date COLPOSCOPY CERVIX UPPER/ADJACENT VAGINA 2017 Colposcopy CONIZATION CERVIX W/WO D&C RPR ELTRD EXC 2017 LEEP-Cervix KYLEENA IUD 12/12/2020 placed in office- due to come out 2025 Family History FAMILY HISTORY Problem Relation Age of Onset Hypertension Father Anxiety disorder Sister No Known Problems Brother Clotting Disorder Maternal Grandmother blood clots Colon Cancer Maternal Uncle Colon Cancer Maternal Aunt Breast Cancer Paternal Aunt Patient Allergies ALLERGIES Allergen Reactions Sulfa (Sulfonamide * Current Medications Current Outpatient Medications on File Prior to Visit Medication Sig spironolactone (ALDACTONE) 100 mg tablet Take one pill by mouth once a day with a full glass of water. levonorgestrel (KYLEENA) 17.5 mcg/24 hrs (5 yrs) 19.5 mg IUD 1 Each by INTRAUTERINE route as directed. doxycycline monohydrate (MONODOX) 100 mg capsule TAKE 1 CAPSULE BY MOUTH TWICE DAILY for 1 (ONE) month. Take WITH FOOD sertraline (ZOLOFT) 50 mg tablet Take 1 tablet by mouth once daily. (Patient taking differently: Take 50 mg by mouth once daily. Patient thinks she is on 150mg po daily) No current facility-administered medications on file prior to visit. Social History Social History Tobacco Use Smoking status: Never Smokeless tobacco: Never Vaping Use Vaping Use: Never used Substance Use Topics Alcohol use: Yes Alcohol/week: 1.3 standard drinks Types: 1 Mixed Drinks per week Comment: Socially Drug use: No Review of Symptoms REVIEW OF SYSTEMS GENERAL: No weight loss, malaise or fevers HEENT: Negative for frequent or significant headaches, No changes in hearing or vision, no nose bleeds or other nasal problems NECK: Negative for lumps, goiter, pain and significant neck swelling RESPIRATORY: Negative for cough, hemoptysis, wheezing, COPD, dyspnea or shortness of breath CARDIOVASCULAR: Negative for chest pain, leg swelling, hypertension, CHF or palpitations GI: No nausea, vomiting, or diarrhea : No history of dysuria, frequency or incontinence [facility]: Negative for abnormal vaginal bleeding, abnormal vaginal discharge MUSCULOSKELETAL: Negative for joint pain or swelling, back pain or muscle pain SKIN: Negative for lesions, rash, and itching EXAM: BP 124/78 Pulse 67 Resp 16 Ht 158.6 cm (5' 2.44 ) Wt 102.2 kg (225 lb 6.4 oz) LMP 12/29/2020 SpO2 98% BMI 40.65 kg/m General Appearance: Well appearing, alert, in no acute distress, well-hydrated, well nourished. Morbidly obese. Skin: Skin color, texture, turgor normal, no suspicious rashes or lesions. Head: Normocephalic, no masses, lesions, tenderness or abnormalities. Eyes: Anicteric sclera. Pupils are equally round and reactive to light. Extraocular movements are intact. . Ears: External ears normal, canals clear. Oropharynx: Lips, mucosa, and tongue normal, teeth and gums normal, oropharynx normal. Neck: Supple, no adenopathy; thyroid symmetric, normal size, no bruits. Lungs: Lungs clear to auscultation. No wheezing, rhonchi, rales.. Heart: RRR without murmur, gallop, or rubs. No ectopy. Abdomen: Normal abdominal exam, Abdomen soft, non-tender. Bowel sounds normal. No masses, organomegaly. Extremities: No deformities, edema, skin discoloration, clubbing or cyanosis. Good capillary refill. . Health Maintenance List HEPATITIS C SCREENING Never done DTAP,TDAP,TD(7 - Td or Tdap) due on 04/16/2018 COVID-19 VACCINE(3 - Booster for Moderna series) due on 12/25/2020 INFLUENZA(1) due on 05/13/2022 DEPRESSION ASSESSMENT Never done PAP TESTING due on 03/05/2023 HEPATITIS B Completed HIV SCREENING Completed ASSESSMENT/PLAN: 1. Annual physical exam - ICD9: V70.0, ICD10: Z00.00 (primary diagnosis) - Counseled on healthy diet and regular exercise - Calcium intake with supplements or by diet of 1000 mg/day for under 50, 7933-1201 mg/day for 50+ - Discussed need and benefit for weight loss. BMI 40.65 kg/(m^2) - Depression screening tool completed and reviewed with patient. Based on score and interview, patient is not at risk for depression and recommended no further intervention at this time. - Follow up for annual exam in one year - CBC + DIFF - COMP METABOLIC PANEL - LIPID PANEL, NONFASTING - HGB A1C 2. KATLYN (generalized anxiety disorder) - ICD9: 300.02, ICD10: F41.1 Previously controlled on Zoloft 75 mg daily. Will restart and f/u in 3-6 months or PRN. Red flags for re-assessment reviewed with patient in detail. - SERTRALINE 50 MG TABLET - DEPRESSION SCREENING/ASSESSMENT 3. Morbid obesity with BMI of 40.0-44.9, adult (HCC) - ICD9: 278.01, V85.41, ICD10: E66.01, Z68.41 Weight increasing - Behavioral intervention - HGB A1C 4. Hidradenitis axillaris - ICD9: 705.83, ICD10: L73.2 Controlled on current regimen. F/u with derm. 5. Macromastia - ICD9: 611.1, ICD10: N62 Patient admits to back pain 2/2 large pendulous breasts. Has considered breast reduction in the past, but insurance would not cover. Unable to afford now. Will let us know if she wants referral. 6. 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 Last pap normal in 2019. Due for repeat pap smear. Will place referral back to [facility]. - CONSULT TO GYNECOLOGY 7. Special screening examination for viral disease - ICD9: V73.99, ICD10: Z11.59 - HEP C AB IA W/CONF SCRN Jama Padilla MD documented in this encounter [facility] documented as of this encounter (statuses as of 11/25/2022) [facility]07-19-2010 History of Past illness Narrative* Problem Noted Date Resolved Date Well adolescent visit 03/30/2010 12/20/2016 documented as of this encounter (statuses as of 11/29/2022) [address]19-2010 History of Past illness Narrative* Problem Noted Date Resolved Date Well adolescent visit 03/30/2010 12/20/2016 documented as of this encounter (statuses as of 12/24/2022) [address]19-2010 History of Past illness Narrative* Problem Noted Date Diagnosed Date Resolved Date Well adolescent visit 03/30/20102016 documented as of this encounter (statuses as of 04/24/2023) [address]19-2010 History of Past illness Narrative* Problem Noted Date Diagnosed Date Resolved Date Well adolescent visit 03/30/20102016 documented as of this encounter (statuses as of 06/17/2023) [address]19-2010 History of Past illness Narrative* Problem Noted Date Diagnosed Date Resolved Date Well adolescent visit 03/30/20102016 documented as of this encounter (statuses as of 06/18/2023) [facility] Annual physical exam- Primary Routine general medical examination at a health care facility KATLYN (generalized anxiety disorder) Generalized anxiety disorder Morbid obesity with BMI of 40.0-44.9, adult (HCC) Morbid obesity Hidradenitis axillaris Hidradenitis Macromastia Hypertrophy of breast 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 Special screening examination for viral disease Special screening examination for unspecified viral disease [facility] Diagnosis Thrombocytosis- Primary Essential thrombocythemia [facility] Diagnosis Encounter for gynecological examination (general) (routine) without abnormal findings- Primary 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 Screening for cervical cancer Screening for malignant neoplasm of the cervix Encounter for screening for human papillomavirus (HPV) Special screening examination for human papillomavirus (HPV) Large breasts Hypertrophy of breast Screening for STD (sexually transmitted disease) Screening examination for venereal disease [facility] Diagnosis Bee sting, accidental or unintentional, initial encounter- Primary Skin inflammation Unspecified local infection of skin and subcutaneous tissue [facility] Diagnosis KATLYN (generalized anxiety disorder)- Primary Generalized anxiety disorder Morbid obesity with BMI of 40.0-44.9, adult (HCC) Morbid obesity Hidradenitis axillaris Hidradenitis Thrombocytosis Essential thrombocythemia Elevated LFTs Other abnormal blood chemistry documented in this encounter [facility] Reason for Referral Specialty Diagnoses / Procedures Referred By Marshal t Referred To Contact Gynecology Diagnoses Carcinoma in situ of exocervix Procedures CONSULT TO GYNECOLOGY OFFICE/OUTPATIENT NEW HIGH MDM 60-74 MINUTES Jama Padilla MD [address] [place] [address] Referral ID Status Reason Start Date Expiration Date Visits Requested Visits Authorized [id number] Authorized PCP Requested Referral Auto-Generate d Referral 11/25/2022 11/25/2023 1 1 Specialty Diagnoses / Procedures Referred By Marshal de la rosa Referred To Contact Plastic Surgery Diagnoses Large breasts Procedures CONSULT TO PLASTIC SURGERY OFFICE/OUTPATIENT [facility] MDM 60-74 MINUTES Bobbi Bills APRN.[facility] [address] [place] [address] Referral ID Status Reason Start Date Expiration Date Visits Requested Visits Authorized [id number] Authorized PCP Requested Referral 12/23/2022 12/23/2023 1 1 Summary Purpose Family History No Family History Records Found Advance Directives No Advanced Directives Records Found Additional Source Comments Source Comments (unrecognize d section and content) In the event this informatio n is protected by the Federal Confidentiality of Alcohol and Drug Abuse Patient Records regulations: The Federal rules restrict any use of the information to criminally investigate or prosecute any alcohol or drug abuse patient[facility] event this information is protected by the Federal Confidentiality of Alcohol and Drug Abuse Patient Records regulations: The Federal rules restrict any use of the information to criminally investigate or prosecute any alcohol or drug abuse patient[facility] event this information is protected by the Federal Confidentiality of Alcohol and Drug Abuse Patient Records regulations: The Federal rules restrict any use of the information to criminally investigate or prosecute any alcohol or drug abuse patient.[facility] event this information is protected by the Federal Confidentiality of Alcohol and Drug Abuse Patient Records regulations: The Federal rules restrict any use of the information to criminally investigate or prosecute any alcohol or drug abuse patient.[facility] event this information is protected by the Federal Confidentiality of Alcohol and Drug Abuse Patient Records regulations: The Federal rules restrict any use of the information to criminally investigate or prosecute any alcohol or drug abuse patient.[facility] event this information is protected by the Federal Confidentiality of Alcohol and Drug Abuse Patient Records regulations: The Federal rules restrict any use of the information to criminally investigate or prosecute any alcohol or drug abuse patient.[facility] Reason for Visit (unrecogniz ed section and content) Reason Comments Results Specialty Diagnoses / Procedures Referred By Contjanelle t Referred To Contact Gynecology Diagnoses Carcinoma in situ of exocervix Procedures CONSULT TO GYNECOLOGY OFFICE/OUTPATIENT [facility] 60-74 MINUTES Jama Padilla MD [address] [place] [address] Referral ID Status Reason Start Date Expiration Date V isits Requested Visits Authorized [id number] Closed PCP Requested Referral Auto-Generated Referral 11/25/2022 11/25/2023 1 1 Reason Comments Insect Bite L thigh bee sting x2 days Reason Comments Follow Up 6 month Care Teams (unrecognized sec tion and content) 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 Relationship Specialty Start Date End Date Jama Padilla MD [address] [place], [place] [phone] PCP - General Family Medicine 11/25/22 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 Relationship Specialty Start Date End Date Jama Padilla MD [address] [place], [place] [phone] PCP - General Family Medicine 11/25/22 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 Relationship Specialty Start Date End Date Jama Padilla MD [address] [place], [place] [phone] PCP - General Family Medicine 11/25/22 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 This clinical summary was aggregated from multiple sources. Caution should be exercised in using it in the provision of clinical care. This summary normalizes information from multiple sources, and as a consequence, information in this document may materially change the coding, format and clinical context of patient data. In addition, data may be omitted in some cases. CLINICAL DECISIONS SHOULD BE BASED ON THE PRIMARY CLINICAL RECORDS. [employer] provides no warranty or guarantee of the accuracy or completeness of information in this document.
[2023-10-01 06:08] LABS: HSV 2 IgG < 0.91 index (0.00-0.90)
== END | disposition home or self-care (01) ==
PROVIDERS: PCP Family Medicine; Referring Provider Physician Assistant Surgical; Visit Provider Physician Assistant Surgical
DX: Z20.828 Contact with and (suspected) exposure to other viral communicable diseases (principal); W50.3XXA Accidental bite by another person, initial encounter
CPT/HCPCS: 36415; 86695; 86696